=== PATIENT | male | born 1980 | race Caucasian/White ===

== ENCOUNTER 2022-07-29 20:39 | Emergency (ER) | payer BC | END 2022-07-29 21:34 | LOC: ERS 20:39 | DX: Z02.89 Encounter for other administrative examinations (principal) | CPT/HCPCS: 99282 ==

== ENCOUNTER 2022-07-29 22:02 | Emergency (ER) | payer BC, SELFPAY | END 2022-07-30 00:37 | LOC: ERS 22:02 | DX: R10.9 Unspecified abdominal pain (principal) | CPT/HCPCS: 74022; 99283 ==